=== PATIENT | male | born 1990 | race Native Hawaiian/Other Pacific Islander ===

== ENCOUNTER 2020-12-07 19:49 | Emergency (ER) | payer OTHER ==
[~2020-12-07] VITALS: Ht 190.5 cm; Wt 74.8 kg
[2020-12-07 22:01] LABS: PLATELET COUNT 242 K/uL (142-355)
[2020-12-07 22:07] LABS: POTASSIUM 3.7 mmol/L (3.6-5.2); SODIUM 140 mmol/L (136-145)
[2020-12-07 22:13] LABS: PARTIAL THROMBOPLASTIN TIME 26.7 SECONDS (24.5-33.6)
[2020-12-08 00:25] VITALS: BP 123/69; TEMP 98.2
== END 2020-12-08 00:25 | disposition home or self-care (01) ==
LOC: ED 19:49
PROVIDERS: Emergency Medicine
DX: R07.89 Other chest pain (principal); R51.9 Headache, unspecified; B34.9 Viral infection, unspecified
CPT/HCPCS: 36415; 80053; 80307; 81000; 82150; 83690; 83880; 84484; 85027; 85610; 85730; 93005; 96360; 96375; 99284; J1885

== ENCOUNTER 2020-12-09 20:48 | Emergency (ER) | payer OTHER ==
[~2020-12-09] VITALS: Ht 190.5 cm; Wt 74.8 kg
[2020-12-09 21:08] LABS: PLATELET COUNT 242 K/uL (142-355)
[2020-12-09 21:24] LABS: POTASSIUM 3.9 mmol/L (3.6-5.2); SODIUM 139 mmol/L (136-145)
[2020-12-09 22:24] VITALS: BP 129/72; TEMP 98.6
== END 2020-12-09 22:24 | disposition home or self-care (01) ==
LOC: ED 20:48
PROVIDERS: Family Medicine
DX: R07.89 Other chest pain (principal); F40.10 Social phobia, unspecified; F41.8 Other specified anxiety disorders; F43.10 Post-traumatic stress disorder, unspecified; Z03.818 Encounter for observation for suspected exposure to other biological agents ruled out
CPT/HCPCS: 36415; 80053; 84484; 85027; 87635; 93005; 99284; U0003